=== PATIENT | male | born 1940 ===

== ENCOUNTER 2016-05-18 09:16 | Day surgery (SDC) | payer MEDICARE, BC ==
[2016-05-18] VITALS (7 sets, daily range): BP systolic 111–126; BP diastolic 62–75; PULSE 74–82; RESP 16–20; TEMP 97.8–98; O2SAT 96–98
[~2016-05-18] VITALS: Ht 182.9 cm; Wt 115.4 kg
[2016-05-18] MEDS ORDERED: SODIUM CHLORIDE 5 ML FLUSH PRN IVF (09:45)
[2016-05-18] MEDS ORDERED: ATOR20TA15 PO (09:49)
[2016-05-18] MEDS ORDERED: ASCO500T PO (09:49)
[2016-05-18] MEDS ORDERED: TAMS5CAP PO (09:49)
[2016-05-18] MEDS ORDERED: BUPR150T3 PO (09:49)
[2016-05-18] MEDS ORDERED: HUMALOG SQ (09:49)
[2016-05-18] MEDS ORDERED: FURO40TA PO (09:49)
[2016-05-18] MEDS ORDERED: METO25TA6 PO (09:49)
[2016-05-18] MEDS ORDERED: FLEE5TAB PO (09:49)
[2016-05-18] MEDS ORDERED: COLA100C3 PO (09:49)
[2016-05-18] MEDS ORDERED: LACTTAB8 PO (09:49)
[2016-05-18] MEDS ORDERED: ASPI1TAB69 PO (09:49)
[2016-05-18] MEDS ORDERED: FINA5TAB2 PO (09:49)
[2016-05-18] MEDS ORDERED: BACT2OIN TOPICAL (09:49)
[2016-05-18] MEDS ORDERED: FLUT1SPR9 EACH NARE (09:49)
[2016-05-18] MEDS ORDERED: FENO145T2 PO (09:49)
[2016-05-18] MEDS ORDERED: GLYB2.5T3 PO (09:49)
[2016-05-18] MEDS ORDERED: LISI2.5T3 PO (09:49)
[2016-05-18] MEDS ORDERED: METO2.5T PO (09:49)
[2016-05-18] MEDS ORDERED: ZANT150T2 PO (09:50)
[2016-05-18] MEDS ORDERED: ACET-703 PO (09:50)
[2016-05-18] MEDS ORDERED: OXYC1CAP PO (09:50)
[2016-05-18] MEDS ORDERED: NU-I150C PO (09:50)
[2016-05-18] MEDS ORDERED: POTA-163 PO (09:50)
[2016-05-18] MEDS ORDERED: MIDAZOLAM HCL 5 MG/5 ML VIAL ONE (10:31)
[2016-05-18] MEDS ORDERED: fentaNYL CITRATE 250 MCG/5 ML AMP ONE (10:31)
--- NOTE | 2016-05-18 11:10 | PD.RAD ---
Post Procedure Progress Note Pre Procedure Diagnosis: (1) Peritoneal dialysis catheter fitting or adjustment (2) Peritoneal dialysis catheter dysfunction Post Procedure Diagnosis: (1) Peritoneal dialysis catheter dysfunction (2) Peritoneal dialysis catheter fitting or adjustment Procedure Date: May 18, 2016 Supervising Radiologist: Bernabe Yuan Plan of Activity Patient to Unit: [facility] Patient Condition: Good Additional Comments: Tenckhoff catheter was coiled in the left low pelvis. Catheter was easily repositioned in the right pelvis. following reposition approximately 200c cc of fluid drained. See PACS Report for procedural detail/treatment Bernabe Yuan MD May 18, 2016 11:10
[2016-05-18] MEDS ORDERED: IOHEXOL 350 MG/ML 50 ML BTL (for RAD DIAG) ONE (11:19)
[2016-05-18] MEDS ORDERED: SODIUM CHLORIDE 5 ML FLUSH BID IVF SCH (21:00)
--- NOTE | 2016-05-19 09:01 | RADRPT ---
EXAM DATE/TIME: 05/18/2016 10:32 [place] COMPARISON: PERITONEOGRAM, May 18, 2016, 0:00. INDICATIONS : Patient has non functioning peritoneal catheter. MEDICAL HISTORY : ESRD,Anemia,diabetes,high,cholesterol,Afib,HTN SURGICAL HISTORY : Hernia repair, Peritoneal catheter ENCOUNTER: Initial ACUITY: 3 months PAIN SCORE: 5/10 Bilateral shoulders FLUORO TIME: 1.3 minutes SEDATION TIME: 30minutes CONTRAST: 5 cc Omnipaque (iohexol) 350 MEDICATION(S): 1.) 50 mcg fentanyl (Sublimaze) IV 2.) 1 mg midazolam (Versed) IV PROCEDURE : 1. Tenckhoff catheter reposition. 2. Conscious sedation with continuous EKG and Oximetry monitoring. The risks, benefits and alternatives to the procedure were explained and verbal and written consent w as obtained. The site was prepped in sterile fashion. Full sterile technique was used, including ca p, mask, sterile gloves and gown and a large sterile sheet. Hand hygiene and 2% chlorhexidine prep w as utilized per protocol for cutaneous antisepsis with appropriate dry time for site. A small amount of contrast was injected through the existing catheter. The catheter was coiled in the left pelvis. A 0.035 wire was advanced through the catheter. The catheter was coiled and positioned in the midline of the pelvis. Following repositioning there was approximately 200 cc of clear fluid was returned. Conscious sedation was performed with the prescribed dosages and duration as above. EKG and oximetry remained stable throughout the procedure. CONCLUSION: Successful repositioning of the patient's Tenckhoff peritoneal dialysis catheter. Bernabe Yuan MD on May 19, 2016 at 8:53 Board Certified Radiologist. This report was verified electronically.
== END 2016-05-18 13:20 | disposition home or self-care (01) ==
LOC: HROP 09:16 → HRIP 09:22 → HROP 13:20
PROVIDERS: ATTEND Radiology Body Imaging
DX: T85.611A Breakdown (mechanical) of intraperitoneal dialysis catheter, initial encounter (principal); I12.0 Hypertensive chronic kidney disease with stage 5 chronic kidney disease or end stage renal disease; N18.6 End stage renal disease; E11.22 Type 2 diabetes mellitus with diabetic chronic kidney disease; I48.91 Unspecified atrial fibrillation; Y81.2 Prosthetic and other implants, materials and accessory general- and plastic-surgery devices associated with adverse incidents; Z99.2 Dependence on renal dialysis
CPT/HCPCS: 49400; 49999; 74190; 99152; 99153; J2250; J3010; Q9967